=== PATIENT | female | born 1975 | race African-American/Black ===

== ENCOUNTER → 2018-12-16 | Outpatient (CLI) | payer OTHER | LOC: COL.RAD 08:28 | DX: D25.9 Leiomyoma of uterus, unspecified (principal) ==

== ENCOUNTER → 2022-06-12 | Outpatient (CLI) | payer BC | LOC: COL.RAD 08:15 | DX: D25.9 Leiomyoma of uterus, unspecified (principal) | CPT/HCPCS: A9575 ==